=== PATIENT | female | born 1990 | race Caucasian/White ===

== ENCOUNTER 2017-12-09 16:06 | Emergency (ER) | payer OTHER ==
[~2017-12-09] VITALS: Ht 157.5 cm; Wt 52.2 kg
[~2017-12-09 16:06] MED LIST: ADULT TUSS100 MG/5 M PO; ALLEGRA-D1 TAB.SR . PO
[2017-12-09] MEDS ORDERED: MEDROLPACK PO (20:39)
[2017-12-09] MEDS ORDERED: ALL DAY ALLERGY10 M3 PO (20:39)
== END 2017-12-09 20:55 | disposition home or self-care (01) ==
LOC: ER 16:06
DX: L50.8 Other urticaria (principal)

== ENCOUNTER 2019-03-08 15:49 | Emergency (ER) | payer OTHER ==
[~2019-03-08] VITALS: Ht 157.5 cm; Wt 52.6 kg
[~2019-03-08 15:49] MED LIST changes: +ALL DAY ALLERGY10 M3 PO; +MEDROLPACK PO
== END 2019-03-08 18:38 | disposition home or self-care (01) ==
LOC: ER 15:49
DX: O20.0 Threatened abortion (principal)

== ENCOUNTER 2019-03-12 11:58 | Emergency (ER) | payer OTHER ==
[~2019-03-12] VITALS: Ht 157.5 cm; Wt 52.6 kg
== END 2019-03-12 14:57 | disposition home or self-care (01) ==
LOC: ER 11:58
DX: O03.9 Complete or unspecified spontaneous abortion without complication (principal); O26.891 Other specified pregnancy related conditions, first trimester

== ENCOUNTER 2020-06-22 10:15 | Inpatient (IN) | payer OTHER ==
[~2020-06-22] VITALS: Ht 157.5 cm; Wt 3.2 kg
[2020-06-29] MEDS ORDERED: PRENATAL PLUS1 EAC1 PO (09:22)
== END 2020-07-02 12:58 | disposition home or self-care (01) | DRG 788 ==
LOC: OB/GYN 06-29 08:07 → O/R 06-29 08:07 → OB/GYN 06-29 10:15
PROVIDERS: ADMIT Specialist; ATTEND Specialist
PROC: 4A1HXFZ Monitoring of Products of Conception, Cardiac Rhythm, External Approach (ICD-10-PCS; 2020-06-29)
PROC: 10D00Z1 Extraction of Products of Conception, Low, Open Approach (ICD-10-PCS; principal; 2020-06-29 14:30)
DX: O34.211 Maternal care for low transverse scar from previous cesarean delivery (principal); Z37.0 Single live birth; Z3A.38 38 weeks gestation of pregnancy

== ENCOUNTER 2022-06-22 07:50 | Emergency (ER) | payer OTHER ==
[~2022-06-22] VITALS: Ht 157.5 cm; Wt 53.5 kg
[~2022-06-22 07:50] MED LIST changes: +PRENATAL PLUS1 EAC1 PO
== END 2022-06-22 11:09 | disposition home or self-care (01) ==
LOC: ER 07:50
DX: B34.8 Other viral infections of unspecified site (principal); Z20.828 Contact with and (suspected) exposure to other viral communicable diseases

== ENCOUNTER 2024-04-23 20:48 | Emergency (ER) | payer OTHER ==
[~2024-04-23] VITALS: Ht 157.5 cm; Wt 53.5 kg
[2024-04-23] MEDS ORDERED: 0.9 % SODIUM CHLORIDE 1,000 ML IV STA (22:43)
[2024-04-23] MEDS ORDERED: FAMOTIDINE/PF 20 MG/2 ML VIAL IV ONE (22:45)
[2024-04-23] MEDS ORDERED: ONDANSETRON HCL 2 MG/ML VIAL IV ONE (22:45)
[2024-04-24 00:04] LABS: HEMATOCRIT 36.2 % (36.0-45.00); HEMOGLOBIN 12.1 g/dL (12.0-15.00); MEAN CORPUSCULAR HEMOGLOBIN 25.3 pg (27.00-32.0); MEAN CORPUSCULAR HGB CONC 33.3 g/dl (32.0-36.0); PLATELET COUNT 220 K/uL (150-450); RED BLOOD COUNT 4.77 M/uL (4.00-6.00); RED CELL DISTRIBUTION WIDTH 15.9 % (11.5-14.5)
[2024-04-24 00:13] LABS: ALBUMIN 3.8 gm/dL (3.4-5.0); BILIRUBIN TOTAL 0.37 mg/dL (0.3-1.2); CALCIUM 8.7 mg/dL (8.5-10.1); CREATININE SERUM 0.72 mg/dL (0.55-1.02); GFR 93.29; GLOBULINA 4.3 G/DL (2.4-3.5); POTASSIUM 3.37 mEq/L (3.5-5.1); TOTAL PROTEIN 8.1 gm/dL (6.4-8.2)
[2024-04-24] MEDS ORDERED: ZOFRAN8 MG PO (01:51)
[2024-04-24] MEDS ORDERED: PEPCID AC20 MG PO (01:51)
[2024-04-24] MEDS ORDERED: DIPHENOXYLATE HCL/ATROPINE 1 UDTAB TABLET PO ONE (02:15)
== END 2024-04-24 02:10 | disposition home or self-care (01) ==
LOC: ER 20:50
PROVIDERS: Emergency Medicine
DX: R19.7 Diarrhea, unspecified (principal); B34.9 Viral infection, unspecified; Z20.822 Contact with and (suspected) exposure to COVID-19
CPT/HCPCS: 36415; 96365; 99282; J2405; J3490; J7030